=== PATIENT | female | born 1935 | race Two or more races ===

== ENCOUNTER 2017-12-06 14:59 | Emergency (ER) | payer MEDICARE, OTHER ==
[~2017-12-06] VITALS: Ht 165.1 cm; Wt 81.6 kg
--- NOTE | 2017-12-06 15:30 | NUR ---
L WRIST PAIN AND SWELLING S/P TRIP AND FALL TODAY, 01/29. NO KO, VSS.
[2017-12-06 17:32] VITALS: BP 134/80
--- NOTE | 2017-12-06 17:32 | NUR ---
Patient discharged to home in stable condition. Written and verbal after care instructions given. Patient verbalizes understanding of instruction.
== END 2017-12-06 17:33 | disposition home or self-care (01) ==
LOC: ER 15:01
DX: S62.102A Fracture of unspecified carpal bone, left wrist, initial encounter for closed fracture (principal); E11.9 Type 2 diabetes mellitus without complications; I10 Essential (primary) hypertension; I48.91 Unspecified atrial fibrillation; M18.9 Osteoarthritis of first carpometacarpal joint, unspecified; Z79.01 Long term (current) use of anticoagulants; W01.0XXA Fall on same level from slipping, tripping and stumbling without subsequent striking against object, initial encounter; Y93.89 Activity, other specified; Y92.89 Other specified places as the place of occurrence of the external cause; Y99.8 Other external cause status
CPT/HCPCS: 29125; 73110; 73130; 99284; A4606; Z7610